=== PATIENT | female | born 1950 | race Asian ===

== ENCOUNTER 2019-06-18 12:12 | Emergency (ER) | payer BC ==
[2019-06-18] MEDS: HYDROCODONE/APAP (10/325) TAB PO (14:10)
== END 2019-06-18 14:37 | disposition home or self-care (01) ==
LOC: E/R 12:12
DX: S00.11XA Contusion of right eyelid and periocular area, initial encounter (principal); S00.12XA Contusion of left eyelid and periocular area, initial encounter; R07.9 Chest pain, unspecified; V49.50XA Passenger injured in collision with unspecified motor vehicles in traffic accident, initial encounter
CPT/HCPCS: 70450; 71045; 72125; 99284-25